=== PATIENT | female | born 1960 | race Caucasian/White ===

== ENCOUNTER 2016-12-13 15:13 | Emergency (ER) | payer OTHER ==
[~2016-12-13] VITALS: Ht 157.5 cm; Wt 80.5 kg
[2016-12-13 15:18] VITALS: Ht 157.5 cm; Wt 80.5 kg
[2016-12-13] MEDS ORDERED: ACETAMINOPHEN 500 MG TAB PO STA (16:47)
--- NOTE | 2016-12-13 17:51 | RADRPT ---
PROCEDURE: XR Chest. CLINICAL INDICATION: Fever. Cough TECHNIQUE: Portable AP semi erect view of the chest was obtained. COMPARISON: 05/28/2016 FINDINGS: The cardiomediastinal silhouette is within upper normal limits. The lungs are clear. Right-sided ap proach venous access device is again noted in good position. There is no evidence for pleural effusi on, pneumothorax or pulmonary vascular congestion. The osseous structures are intact with no eviden ce for acute abnormality. RPTAT:HJJR IMPRESSION: Top normal cardiac silhouette size and right-sided venous access device without evidence for acute i ntrathoracic pathology. Physician Robles Date Time Electronically viewed and signed by Physician Robles on 12/13/2016 17:50 JR/
[2016-12-13] MEDS ORDERED: ACET500C5 PO (18:26)
[2016-12-13] MEDS ORDERED: IBUP-1542 PO (18:26)
[2016-12-13] MEDS ORDERED: BENZ100C70 PO (18:26)
[2016-12-13] MEDS ORDERED: CETI10CA PO (18:27)
--- NOTE | 2016-12-13 18:38 | ERD ---
ER Documentation Chief Complaint Date/Time DATE: 12/13/16 TIME: 18:35 Chief Complaint Complains of cough x 3 days HPI Patient is a 56-year-old female who presents to the ED with cough, runny nose, congestion and fever 4 days. She states that other people at home have had similar symptoms. She states that she has taken Tylenol and Motrin for her symptoms however she states that she has not taken it in 2 days. She also complains of congestion. Denies chest pain, shortness of breath or difficulty breathing. Denies abdominal pain, nausea, vomiting, diarrhea or constipation. She is tolerating fluids but does have a decrease in appetite however she is eating minimal amounts of food. Denies headache, dizziness, neck pain or stiffness. Up-to-date with vaccinations. Denies leg pain or swelling. Denies recent travel, recent surgeries or use of OCPs. ROS All systems reviewed and are negative except as per history of present illness. Medications Home Meds Active Scripts Cetirizine Hcl* (Zyrtec*) 10 Mg Capsule, 10 MG PO DAILY, #30 TAB.CHEW Prov:GRAYSON LIVINGSTON-C 12/13/16 Benzonatate* (Tessalon Perle*) 100 Mg Capsule, 100 MG PO Q8H Y for COUGH for 14 Days, CAP Prov:GRAYSON LIVINGSTON PA-C 12/13/16 Ibuprofen* (Motrin*) 600 Mg Tab, 600 MG PO Q6, #30 TAB Prov:YESYTARIGRAYSON JENNINGS PA-C 12/13/16 Acetaminophen* (Tylophen*) 500 Mg Capsule, 1 CAP PO Q6H Y for PAIN AND OR ELEVATED TEMP, #20 CAP Prov:KALEE LIVINGSTONAZ PA-C 12/13/16 Allergies Allergies: Coded Allergies: No Known Allergy (Unverified , 05/28/16) PMhx/Soc History of Surgery: Yes (L MASTECTOMY) Anesthesia Reaction: No Hx Neurological Disorder: No Hx Respiratory Disorders: No Hx Cardiac Disorders: Yes (htn) Hx Psychiatric Problems: No Hx Miscellaneous Medical Probl: Yes (BREAST CA) Hx Alcohol Use: No Hx Substance Use: No Hx Tobacco Use: No FmHx Family History: No coronary disease, No diabetes, No other Physical Exam Vitals Vital Signs Date Time Temp Pulse Resp B/P Pulse Ox O2 Delivery O2 Flow Rate FiO2 12/13/16 18:07 100.0 12/13/16 15:18 101.0 94 20 143/88 98 Physical Exam GENERAL: Well-developed, well-nourished female. Appears in no acute distress. HEAD: Normocephalic, atraumatic. EYES: Pupils are equally reactive bilaterally. EOMs grossly intact. No conjunctival erythema. ENT: Moist mucous membranes. No uvula deviation. No kissing tonsils. No exudates. Bilateral TMs are non-erythematous, nonbulging. No mastoid tenderness NECK: Supple. No lymphadenopathy or thyromegaly. No meningismus. negative kernig. negative brudinski. LUNG: Clear to auscultation bilaterally. No rhonchi, wheezing, rales or coarse breath sounds. HEART: Regular rate and rhythm. No murmurs, rubs or gallops. Extremities: Equal pulses bilaterally. No peripheral clubbing, cyanosis or edema. No unilateral leg swelling. Negative Homans sign NEUROLOGIC: Alert and oriented. Moving all four extremities. 5/5 strength in all extremities. Normal speech. Steady gait. Cranial nerves II through XII intact SKIN: Normal color. Warm and dry. No rashes or lesions. Capillary refill < 2 seconds Results 24 hrs Current Medications Medications (Trade) Dose Ordered Sig/Fatab Route PRN Reason Start Time Stop Time Status Last Admin Dose Admin Acetaminophen (Tylenol Tab) 1,000 mg ONCE STAT PO 12/13/16 16:47 12/13/16 16:59 DC 12/13/16 17:10 Procedures/MDM ER COURSE: I kept the patient and/or family informed of laboratory and diagnostic imaging results throughout the emergency room course. IMAGING STUDIES [place] [id number] Radiology Main Line: [phone] DIAGNOSTIC IMAGING REPORT Patient: ADDY GARCIA : 1960 Age: 56 Sex: F MR #: [id number] DOS: 12/13/16 1647 Ordering MD: GRAYSON LIVINGSTON PA-C Location: [facility] Room/Bed: PROCEDURE: XR Chest. CLINICAL INDICATION: Fever. Cough TECHNIQUE: Portable AP semi erect view of the chest was obtained. COMPARISON: 05/28/2016 FINDINGS: The cardiomediastinal silhouette is within upper normal limits. The lungs are clear. Right-sided approach venous access device is again noted in good position. There is no evidence for pleural effusion, pneumothorax or pulmonary vascular congestion. The osseous structures are intact with no evidence for acute abnormality. RPTAT:HJJR IMPRESSION: Top normal cardiac silhouette size and right-sided venous access device without evidence for acute intrathoracic pathology. Physician Robles Date Time Electronically viewed and signed by Ronny Hinton Physician on 12/13/2016 17:50 JR/ CC: GRAYSON LIVINGSTON PA-C MEDICATIONS Tylenol. Tolerated well with no adverse reaction. Seen improvement in symptoms. MEDICAL DECISION MAKING: This is a 56-year-old female who presents with fever, cough, congestion 4 days. Vital signs were reviewed. Patient has temperature 101 here in the ED. Patient is not hypoxic. Patient likely has URI of viral etiology. Her x-ray is read by radiologist shows Top normal cardiac silhouette size and right-sided venous access device without evidence for acute intrathoracic pathology. I reexamined patient after administration of Tylenol patient stated improvement in symptoms and her temperature is down trending, 100 and trending downward. Low suspicion for pneumonia, PE, pneumothorax, ACS, epiglottitis, obstruction, TB, pertussis, meningitis, sepsis. Low suspicion for ACS, PE, AAA, dissection, DVT. Suspicion for cardiac emergency. DISCHARGE: At this time, patient is stable for discharge and outpatient management with no new complaints during the ER course. Patient was sent home with Tylenol, Motrin , Zyrtec and Tessalon Perles.. Patient will be discharged home with instructions to recheck for new or worsening symptoms such as fever, nausea, weakness, LOC and to follow up with primary care in the next 1-2 days. Patient was advised to return to the ER for any new or worsening symptoms. Plan was discussed and patient and/or family understands and agrees. Home instructions were given. Departure Diagnosis: Primary Impression: URI, acute Condition: Stable Patient Instructions: Uri, Viral, No Abx (Adult) Additional Instructions: Llame al doctor MAANA y lita biju ADAM PARA DENTRO DE 1-2 TORRES.Dgale a la secretaria que nosotros le instruimos hacer esta adam.Avise o llame si child condicin se empeora antes de la adam. Regresa aqui si peor o no mejor. GRAYSON LIVINGSTON PA-C Dec 13, 2016 18:38
[2016-12-13 18:46] VITALS: BP 133/74; PULSE 81; RESP 16; TEMP 99.7
== END 2016-12-13 18:47 | disposition home or self-care (01) ==
LOC: FTE 15:13
DX: J06.9 Acute upper respiratory infection, unspecified (principal); I10 Essential (primary) hypertension; Z85.3 Personal history of malignant neoplasm of breast
CPT/HCPCS: 71010; Z7502; Z7610

== ENCOUNTER 2017-01-08 06:34 | Day surgery (SDC) | payer OTHER ==
[~2017-01-08] VITALS: Ht 152.4 cm; Wt 80.0 kg
[2017-01-08] VITALS (12 sets, daily range): BP systolic 125–157; BP diastolic 68–91; PULSE 16–86; RESP 10–18; Ht 152.4 cm; Wt 80.0 kg
[~2017-01-08 06:34] MED LIST: ACET500C5 PO; BENZ100C70 PO; CETI10CA PO; IBUP-1542 PO
[2017-01-08] MEDS ORDERED: LIDOCAINE 2% (SDV) 5 ML INJ ONE (07:00)
[2017-01-08] MEDS ORDERED: CEFAZOLIN 1 GM INJ ONE (07:00)
[2017-01-08] MEDS ORDERED: SOD CHLORIDE 0.9% 1,000 ML IV SCH (07:30)
[2017-01-08] MEDS ORDERED: CEFAZOLIN 2 GM/50 ML (PMX) 50 ML IVPB SCH (07:30)
[2017-01-08 08:38] LABS: ADD SCAN DIFF NO
--- NOTE | 2017-01-08 08:55 | RADRPT ---
PROCEDURE: XR Chest. CLINICAL INDICATION: Breast carcinoma TECHNIQUE: Single AP portable chest COMPARISON: 12/13/2016 Chest x-ray FINDINGS: The cardiomediastinal silhouette is within normal limits of size . Right MediPort catheter tip overl carito the proximal superior vena cava. . Atherosclerotic calcification of the aorta. The lungs are clear without pleural effusion or focal consolidation. No pneumothorax. The osseous structures and soft tissues are unremarkable. IMPRESSION: 1. No evidence for active cardiopulmonary disease. RPTAT:AAJJ Rupert Bacon Physician Date Time Electronically viewed and signed by Rupert Bacon Physician on 01/08/2017 08:55 LOPEZ/
[2017-01-08 08:58] LABS: INR 0.9; PARTIAL THROMBOPLASTIN TIME 26.3 Sec (25.0-35.0); PROTIME 12.1 Sec (12.2-14.2); PT RATIO 0.9
[2017-01-08 08:59] LABS: BASOPHILS % 0.3 % (0.0-2.0); EOSINOPHILS # 0.1 10^3/ul (0.0-0.5); EOSINOPHILS % 1.3 % (0.0-7.0); HEMATOCRIT 35.3 % (37.0-47.0); HEMOGLOBIN 11.9 g/dl (12.0-16.0); LYMPHOCYTES # 2.1 10^3/ul (0.8-2.9); LYMPHOCYTES % 34.9 % (15.0-51.0); MEAN CORPUSCULAR HEMOGLOBIN 31.7 pg (29.0-33.0); MEAN CORPUSCULAR HGB CONC 33.7 g/dl (32.0-37.0); MEAN CORPUSCULAR VOLUME 94.1 fl (82.0-101.0); MEAN PLATELET VOLUME 9.9 fl (7.4-10.4); MONOCYTE # 0.6 10^3/ul (0.3-0.9); MONOCYTES % 9.4 % (0.0-11.0); NEUTROPHIL # 3.2 10^3/ul (1.6-7.5); NEUTROPHILS % 53.6 % (39.0-77.0); PLATELET COUNT 247 10^3/UL (140-415); RED BLOOD COUNT 3.75 10^6/ul (4.20-5.40); RED CELL DISTRIBUTION WIDTH 14.3 % (11.5-14.5)
[2017-01-08 09:07] LABS: POTASSIUM 3.7 mmol/L (3.5-5.1)
[2017-01-08 09:16] LABS: CALCIUM 8.9 mg/dl (8.4-10.2); CREATININE 0.5 mg/dl (0.44-1.00)
[2017-01-08] MEDS ORDERED: PROPOFOL 40 ML ONE (09:21)
[2017-01-08] MEDS ORDERED: ONDANSETRON 4 MG INJ IV PRN (09:30)
[2017-01-08] MEDS ORDERED: EPHEDrine SULFATE 50 MG/5 ML SYG IV PRN (09:30)
[2017-01-08] MEDS ORDERED: LABETALOL HCL 20MG INJ IV PRN (09:30)
[2017-01-08] MEDS ORDERED: FENTAnyl 50 MCG/ML VIAL IV PRN ×3 (09:30)
[2017-01-08] MEDS ORDERED: hydrALAzine 20 MG INJ IV PRN (09:30)
[2017-01-08] MEDS ORDERED: FENTAnyl 50 MCG/ML VIAL ONE (09:35)
--- NOTE | 2017-01-08 10:17 | OPR ---
DATE OF OPERATION: 01/08/2017 PREOPERATIVE DIAGNOSIS: History of breast cancer, need for chemotherapy port removal from the right subclavian location. POSTOPERATIVE DIAGNOSIS: History of breast cancer, need for chemotherapy port removal from the righ t subclavian location. OPERATION PERFORMED: Removal of chemotherapy port right subclavian location. ANESTHESIA: General. ANESTHESIOLOGIST: Dr. Zamora SURGEON: Shakir Khalil MD NETWORKING ENGINEER: Dr. Castrejon INDICATIONS FOR PROCEDURE: The patient is a 56-year-old female previously treated for invasive canc er of her left breast. She completed her treatment and was requesting removal of her chemo port. S he consented and was scheduled for surgery. DESCRIPTION OF PROCEDURE: The patient was brought to the operating theater, placed under general en dotracheal tube anesthesia. The right anterior thoracic area was prepped and draped in usual steril e fashion. Previous surgical incisional scar over the port was reincised with 15 blade scalpel. [place] bcutaneous tissue was dissected with combination of sharp dissection and cautery. The port was diss ected from the surrounding tissue. There were adhesions at the superior aspect of the incision wher e the port was tunneled. These adhesions were taken down with combination of cautery and sharp diss ection. The port was then gently removed while infraclavicular pressure was held. The port appeare d grossly intact, and it was sent for pathologic analysis to ensure that it was intact. The wound w as irrigated. Minimal bleeding was controlled with cautery. The skin was then reapproximated with 4-0 Vicryl suture in subcuticular fashion, and benzoin and Steri-Strips were applied. The patient t olerated the procedure well. The estimated blood loss was 10 mL. There were no complications, and the patient was transported in stable condition to the recovery room. Dictated By: SHAKIR RAM/SILVIANO Conf#: [id number] DID#: [id number]
--- NOTE | 2017-01-09 14:56 | RADRPT ---
Vent Rate: 67 bpm RR Interval: 0 msec SC Interval: 172 msec QRS Duration: 88 msec QT Interval: 434 msec QTC Interval: 458 msec P-R-T [place]: 37 - 35 - 75 degrees Normal sinus rhythm with sinus arrhythmia T wave abnormality, consider anterior ischemia Abnormal ECG No previous tracing available for comparison Electronically Signed By: He Pride [id number]
== END 2017-01-08 12:23 | disposition home or self-care (01) ==
LOC: SDS 06:34
PROVIDERS: ATTEND Surgery Surgical Oncology
DX: Z45.2 Encounter for adjustment and management of vascular access device (principal); Z85.3 Personal history of malignant neoplasm of breast
CPT/HCPCS: 36590; 71010; 80048; 85025; 85610; 85730; 88300; 93005; J0690; J3010; Z7512; Z7610

== ENCOUNTER 2017-08-16 05:53 | Emergency (ER) | payer OTHER ==
[~2017-08-16] VITALS: Ht 162.6 cm; Wt 83.6 kg
[2017-08-16 05:56] VITALS: Ht 162.6 cm; Wt 83.6 kg
[2017-08-16] MEDS ORDERED: ACETAMINOPHEN 500 MG TAB PO STA (06:21)
[2017-08-16] MEDS ORDERED: SOD CHLORIDE 0.9% 1,000 ML IV STA (06:21)
[2017-08-16] MEDS ORDERED: IBUPROFEN 800 MG TAB PO ONE (06:30)
--- NOTE | 2017-08-16 06:50 | RADRPT ---
PROCEDURE: XR Chest. CLINICAL INDICATION: Cough TECHNIQUE: Single frontal view of the chest was obtained COMPARISON: 12/13/16 FINDINGS: The heart and mediastinum are within normal limits. The right chest wall port has been removed. The lungs are clear. There is no pleural effusion or pneumothorax. RPTAT: AA IMPRESSION: No acute disease. .Mitchel Pathak MD, MD Date Time Electronically viewed and signed by .Mitchel Pathak MD, on 08/16/2017 06:49 .S/
[2017-08-16 08:06] LABS: URINE BLOOD (Dip) POC 2+ (NEGATIVE)
[2017-08-16] MEDS ORDERED: IBUP800T25 PO (08:17)
[2017-08-16] MEDS ORDERED: OSLT75C PO (08:17)
[2017-08-16] MEDS ORDERED: ACET325T33 PO (08:17)
[2017-08-16] MEDS ORDERED: ONDA4TAB8 PO (08:17)
--- NOTE | 2017-08-16 08:43 | ERD ---
ER Documentation Chief Complaint Chief Complaint cough w/ chest congestion x2 days, fever HPI 57-year-old female complaining of fever with cough and chest congestion. Denies cardiac pain. Took ibuprofen yesterday but no medication today. Has a runny nose. Positive sore throat. No sick contacts. Denies vomiting. Denies abdominal pain. Denies dysuria or back pain. Has mild neck pain. Denies headaches. ROS All systems reviewed and are negative except as per history of present illness. Medications Home Meds Active Scripts Ondansetron Hcl* (Zofran*) 4 Mg Tablet, 4 MG PO Q6H for NAUSEA AND/OR VOMITING, #30 TAB Prov:ANNETTE THOMAS PA-C 08/16/17 Acetaminophen* (Tylenol*) 325 Mg Tablet, 2 TAB PO Q6 Y for PAIN AND OR ELEVATED TEMP, #20 TAB Prov:ANNETTE THOMAS PA-C 08/16/17 Ibuprofen* (Motrin*) 800 Mg Tab, 800 MG PO Q6, #30 TAB Prov:ANNETTE THOMAS PA-C 08/16/17 Oseltamivir Phosphate* (Tamiflu*) 75 Mg Capsule, 75 MG PO BID for 5 Days, CAP Prov:ANNETTE THOMAS PA-C 08/16/17 Cetirizine Hcl* (Zyrtec*) 10 Mg Capsule, 10 MG PO DAILY, #30 TAB.CHEW Prov:GRAYSON LIVINGSTON-C 12/13/16 Benzonatate* (Tessalon Perle*) 100 Mg Capsule, 100 MG PO Q8H Y for COUGH for 14 Days, CAP Prov:GRAYSON LIVINGSTON-C 12/13/16 Ibuprofen* (Motrin*) 600 Mg Tab, 600 MG PO Q6, #30 TAB Prov:GRAYSON LIVINGSTON-C 12/13/16 Acetaminophen* (Tylophen*) 500 Mg Capsule, 1 CAP PO Q6H Y for PAIN AND OR ELEVATED TEMP, #20 CAP Prov:GRAYSON LIVINGSTON-C 12/13/16 Allergies Allergies: Coded Allergies: No Known Allergy (Unverified , 01/08/17) PMhx/Soc History of Surgery: Yes (breast cancer) Anesthesia Reaction: No Hx Neurological Disorder: Yes Hx Respiratory Disorders: No Hx Cardiac Disorders: No Hx Psychiatric Problems: No Hx Miscellaneous Medical Probl: No Hx Alcohol Use: No Hx Substance Use: No Hx Tobacco Use: No Smoking Status: Never smoker Physical Exam Vitals Vital Signs Date Time Temp Pulse Resp B/P Pulse Ox O2 Delivery O2 Flow Rate FiO2 08/16/17 05:56 101.7 120 29 142/81 98 Physical Exam GENERAL: The patient is well-appearing, well-nourished, in no acute distress HEENT: Atraumatic. Conjunctivae are pink. Pupils equal, round, and reactive to light. There is no scleral icterus. Tympanic membranes clear bilaterally. Oropharynx clear. No nystagmus or photophobia. NECK: C-spine is soft and supple. There is no meningismus. There is no cervical lymphadenopathy. CHEST: Clear to auscultation bilaterally. There are no rales, wheezes or rhonchi. HEART: Regular rate and rhythm. No murmurs, clicks, rubs or gallops. No S3 or S4. SKIN: There is no apparent rash or petechiae. The skin is warm and dry. Results 24 hrs Laboratory Tests Test 08/16/17 08:06 Bedside Urine pH (LAB) 7.0 Bedside Urine Protein (LAB) Negative Bedside Urine Glucose (UA) Negative Bedside Urine Ketones (LAB) Negative Bedside Urine Blood 2+ Bedside Urine Nitrite (LAB) Negative Bedside Urine Leukocyte Esterase (L Negative Current Medications Medications (Trade) Dose Ordered Sig/Aftab Route PRN Reason Start Time Stop Time Status Last Admin Dose Admin Sodium Chloride (NS) 1,000 ml @ 1,000 mls/hr Q1H STAT IV 08/16/17 06:21 08/16/17 07:20 DC 08/16/17 06:48 Acetaminophen (Tylenol Tab) 1,000 mg ONCE STAT PO 08/16/17 06:21 08/16/17 06:22 DC 08/16/17 06:41 Ibuprofen (Motrin) 800 mg ONCE ONCE PO 08/16/17 06:30 08/16/17 06:31 DC 08/16/17 06:40 Procedures/MDM DIAGNOSTIC IMAGING REPORT Patient: ADDY GARCIA : 1960 Age: 57 Sex: F MR #: [id number] DOS: 08/16/17 0621 Ordering MD: DOUGLAS THOMAS PA-C Location: [facility] Room/Bed: PROCEDURE: XR Chest. CLINICAL INDICATION: Cough TECHNIQUE: Single frontal view of the chest was obtained COMPARISON: 12/13/16 FINDINGS: The heart and mediastinum are within normal limits. The right chest wall port has been removed. The lungs are clear. There is no pleural effusion or pneumothorax. RPTAT: AA IMPRESSION: No acute disease. ER Course: 1 gram tylenol and 800mg ibuprofen given in ED with 1L NS. Reevaluation patient's symptoms had improved and patient was feeling much better. MDM: 57-year-old female complaining of URI symptoms with fever and body aches. Patient's chest x-ray is within normal limits. I have low suspicion for pneumonia. I have low suspicion for meningitis or sepsis as patient does not have nuchal rigidity and is nontoxic-appearing. I have low suspicion for UTI or pyelonephritis as patient's urine is within normal limits. I have low suspicion for acute abdomen. Patient's exam is non-concerning. Patient likely has viral illness and may have influenza that I will treat with Tamiflu given she is only had symptoms for 2 days. Patient is told to continue taking ibuprofen and Tylenol for fever control. Patient is told if symptoms change or worsen to return to the ER. I have low suspicion for endocarditis as patient does not have chest pain or murmur heard on auscultation. Patient will return if symptoms change or worsen and is recommended to follow-up with primary care within 1-2 days for close evaluation. All questions answered at discharge. Departure Diagnosis: Primary Impression: Fever Additional Impression: Cough Condition: Stable Patient Instructions: Cough, Chronic, Uncertain Cause, (Adult) Additional Instructions: FOLLOW UP WITH YOUR PRIMARY CARE PHYSICIAN TOMORROW.Return to this facility if you are not improving as expected. ANNETTE THOMAS PA-C Aug 16, 2017 08:43
== END 2017-08-16 08:41 | disposition home or self-care (01) ==
LOC: FTE 05:53
DX: R50.9 Fever, unspecified (principal)
CPT/HCPCS: 71010; 81003; J7030; Z7502; Z7610

== ENCOUNTER 2018-01-24 01:32 | Emergency (ER) | END 2018-01-24 02:57 | disposition home or self-care (01) ==